=== PATIENT | male | born 1990 | race African-American/Black ===

== ENCOUNTER 2017-09-18 20:36 | Emergency (ER) | payer SELFPAY ==
[2017-09-18 20:41] VITALS: BMI 23.6
[2017-09-18] MEDS ORDERED: TORADOL 60 MG VIAL IM ONE (21:10)
--- NOTE | 2017-09-18 21:10 | DR.GENAD ---
HPI - Complaint/Symptoms Chief Complaint Doctors Comments: Dental pain right lower jaw. It has been hurting for a while but today got worse. Chief Complaint:: PT STATES THAT TODAY A PIECE OF A TOOTH ON HIS LOWER RT SIDE BROKE OFF. STATES THAT THE TOOTH HAS BEEN BOTHERING HIM FOR OVER A YEAR. NO DENTIST. - Source History Provided: Patient - Mode of Arrival Mode of Arrival: Ambulatory - Timing Onset of Chief Complaint: 09/18/17 PMH - PMH Past Medical History: No Past Surgical History: Yes Surgical History: Abdominal Surgery - Family History History of Family Medical Conditions: Yes Family Medical History: Cancer - Social History Do you use any recreational Drugs:: No - infectious screening Have you traveled outside the country in the last 6 months?: No ROS - Review of Systems Eyes: No Symptoms Reported ENTM: Loose Teeth (toothache #32) Respiratoy: No Symptoms Reported Cardiovascular: No Symptoms Reported Gastrointestinal/Abdominal: No Symptoms Reported Genitourinary: No Symptoms Reported Neurological: No Symptoms Reported Musculoskeletal: No Symptoms Reported Integumentary: No Symptoms Reported Hematologic/Lymphatic: No Symptoms Reported Endocrine: No Symptoms Reported Psychiatric: No Symptoms Reported All Other Systems: Reviewed and Negative PE - Vital Signs Vitals: Temperature 98.9 F Pulse Rate 84 Respiratory Rate 18 Blood Pressure 130/94 O2 Sat by Pulse Oximetry 98 - General General Appearance: Alert, In No Apparent Distress - Head Head Exam: Normal Inspection, Atraumatic - Eyes Eye exam: Normal Appearance, PERRL, EOMI - ENT ENT Exam: Normal Exam External Ear Exam: Normal External Inspection TM/Canal Exam: Bilateral Normal Nose Exam: Normal Nose Exam Mouth Exam: Other (Dental cavity #32, jaw erythematous minimal swelling) Throat Exam: Normal Inspection - Neck Neck Exam: Normal Inspection, Full ROM - Chest Chest Inspection: Normal Inspection - Respiratory Respiratory Exam: Normal Lung Sounds Bilat Respiratory Exam: Bilateral Clear to Auscultation - Cardiovascular Cardiovascular Exam: Regular Rate, Normal Rhythm - Abdominal Exam Abdominal Exam: Normal Inspection Abdominal Tenderness: negative: RUQ, RLQ, LUQ, LLQ, Epigastrium, Suprapubic, Diffuse, Mild, Moderate, Severe, Other - Extremities Extremities Exam: Normal Inspection, Full ROM - Back Back Exam: Normal Inspection, Full ROM - Neurologic Neurological Exam: Alert, Oriented X3, CN II-XII Intact - Psychiatric Psychiatric Exam: Normal Affect - Skin Skin Exam: Warm, Dry, Intact - Diagnosis Discharge Problem: Pain due to dental caries, Dental abscess - Discharge Plan Condition: Stable - Follow ups/Referrals Follow ups/Referrals: NFD,None [Primary Care Provider] - 3 days - Instructions
[2017-09-18] MEDS ORDERED: TORADOL 60 MG VIAL ONE (21:12)
[2017-09-18 21:32] VITALS: BP 128/90
== END 2017-09-18 21:25 | disposition home or self-care (01) ==
LOC: ER 20:36
DX: K02.9 Dental caries, unspecified (principal); K04.7 Periapical abscess without sinus
CPT/HCPCS: 96372; 99282; J1885